=== PATIENT | female | born 1955 | race African-American/Black ===

== ENCOUNTER 2025-04-05 14:15 | Outpatient (AMB) | payer MEDICARE, SELFPAY ==
--- NOTE | 2025-04-05 14:22 | A.OFFPC_ITS ---
Vital Signs 04/05/25 14:27 04/05/25 14:35 Height 5 ft 8.9 in Weight 143 lb 6 oz BMI 21.2 BP 154/74 H 150/74 H Blood Pressure Location Rt brachial Rt brachial Position Sitting Sitting Respiration 14 Pulse 68 Pulse Source Pulse Oximeter Temp 98.6 F Temp Source Oral Pulse Oximetry (%) 96 Oxygen Delivery Method Room Air Intake Visit Reasons: New patient Accompanied by: Nephew or Niece Allergies No Known Allergies Allergy (Verified 04/05/25 14:24) Medication List - Last Reconciled 04/05/25 by Mari Grant PA-C amlodipine 5 mg PO DAILY lisinopril-hydrochlorothiazide 10-12.5 mg 1 tab PO DAILY Tobacco use date assessed: 04/05/25 Dental Screening Dental Screen Date: 04/05/25 Did you have a dental visit in the last 12 months?: No Did you have a dental problem in the last 6 months where you did not have access to dental care?: No Was dental information given to patient?: Patient has dentist (has appt tomorrow.) HPI New patient HPI Details Pt is a 69 y/o female who presents today to establish care. She has a hx of htn, ?chf. CV: Blood pressure today in the office is 150/74. She has been out of the lisinopril/hydrochlorothiazide 10/12.5 mg tablet. She still has been using the amlodipine 5 mg. No chest pain or shortness on breath. Does report that sometimes she has lower leg edema. Patient's nieces with her today and states that patient was undergoing workup for possible CHF in [place]. No records here today. Patient tells me that she feels great. Neuro: Niece reports some memory changes. It seems like her short term memory has been deficient. Patient tells me that she is not sure how accurate that is. No headaches. No history of strokes as she is aware of. No anxiety or depression. Overall she feels well. She did recently moved to the area from [place] in his adjusting. Mammo: overdue Colonoscopy: never had, would do cologuard Fam hx: father had CO at 56. [facility] Social History (Updated 04/05/25 @ 14:37 by Milly Montgomery CMA) Housing: House Alcohol intake: current Patient Tobacco Use Status: Never used Tobacco e-Cigarette/Vaping Use: Never Used Second Hand Smoke Exposure: No Use of substances other than those prescribed or required for medical reasons: No Cognitive needs: Yes Hearing needs: No Vision needs: Yes Questionnaire PHQ-9 Over the last 2 weeks, how often have you been bothered by any of the following problems? 1. Little interest or pleasure in doing things: several days 2. Feeling down, depressed, or hopeless: not at all 3. Trouble falling or staying asleep, or sleeping too much: more than half the days 4. Feeling tired or having little energy: not at all 5. Poor appetite or overeating: not at all 6. Feeling bad about yourself - or that you are a failure or have let yourself or your family down: not at all 7. Trouble concentrating on things, such as reading the newspaper or watching television: not at all 8. Moving or speaking so slowly that other people could have noticed. Or the opposite - being so fidgety or restless that you have been moving around a lot more than usual: several days 9. Thoughts that you would be better off or of hurting yourself in some way: not at all Total score: 4 Depression Screening Interpretation: Positive Depression Screening Done: Yes Source: Developed by Drs. Emeka Scales, Keily James, Adam Alvares and colleagues, with an educational brendan from [email or web address]. Thrive Questionnaire Date Thrive assessed: 04/05/25 I am a: Patient What is your living situation today?: I have a steady place to live Within the past 12 months, did the food you bought not last and you didn't have the money to get more?: Never true Within the past 12 months, did you worry whether your food would run out before you got money to buy more?: Never true Do you have trouble paying for medicines?: No Do you have trouble getting transportation to medical appointments?: No Do you have trouble paying your heating and electricity bill?: No Do you have trouble taking care of your child, family member or friend?: No Do you have trouble with day-to-day activities such as bathing, preparing meals, shopping, managing finances, etc.?: Yes Are you currently unemployed and looking for a job?: No Are you interested in more education?: No Please select the resources that you would like help with: None Currently or been in a relationship where the following occur: No concerns reported THRIVE Score: 0 AUDIT C Alcohol Use Questionnaire (AUDIT-C) 1. How often do you have a drink containing alcohol?: Never 2. How many drinks containing alcohol do you have on a typical day when you are drinking?: 1 or 2 3. How often do you have six or more drinks on one occasion?: Never Total Score: 0 SMITA-7 AMB Questionnaire SMITA-7 Date SMITA - 7 assessed: 04/05/25 Feeling nervous, anxious, or on edge: 0 = Not at all Not being able to stop or control worryin = Not at all Worrying too much about different things: 0 = Not at all Trouble relaxin = Not at all Being so restless that it is hard to sit still: 0 = Not at all Becoming easily annoyed or irritable: 0 = Not at all Feeling afraid as if something awful might happen: 0 = Not at all Total SMITA-7 score (0-4 normal; 5-9 mild; 10-14 moderate; 15-21 severe): 0 Source: Developed by Drs. Emeka Scales, Keily James, Adam Alvares and colleagues, with an educational brendan from [email or web address]. SMITA-7 Assessment Billing SMITA-7 Assessment Tool: SMITA-7 Assessment 97640 Physical exam (Primary Care) Vital Signs: Last Vital Signs Temp 98.6 F 04/05/25 14:27 Pulse 68 04/05/25 14:27 Resp 14 04/05/25 14:27 BP 150/74 H 04/05/25 14:35 Pulse Ox 96 04/05/25 14:27 Oxygen Delivery Method Room Air 04/05/25 14:27 BMI result Body Mass Index 21.2 Tobacco/Smoking Status: Tobacco use Status Tobacco use date assessed 04/05/25 04/05/25 14:31 Patient Tobacco Use Status Never used Tobacco 04/05/25 14:37 e-Cigarette/Vaping Use Never Used 04/05/25 14:37 PHQ-9: PHQ-9 Score PHQ-9: Total score 4 04/05/25 14:37 Depression Screening Interpretation: Positive Thrive Assessment: Date of Thrive Assessment Date Thrive assessed 04/05/25 04/05/25 14:31 Currently or been in a relationship where the following occur: No concerns reported Const Orientation/consciousness: patient oriented x3 HENMT Ears: hearing grossly normal bilaterally Neck Thyroid: Thyroid normal Lymphatic: no lymphadenopathy noted Resp Auscultation: clear to auscultation bilaterally Cardio Rate: regular rate Rhythm: regular rhythm Heart sounds: S1 normal heart sound present and S2 normal heart sound present GI Inspection: Yes normal to inspection Palpation (GI): Soft to palpation and Other GI palpation findings present (nontender, no cva tenderness) Auscultation: normoactive bowel sounds Rectal Exam - Female: deferred Skin General skin exam: no rashes or lesions noted Neuro General: patient oriented x3, gait normal and no focal motor deficits Office Procedures EKG Details: EKG today in the office is normal sinus rhythm at a rate of 71 beats per minute with nonspecific STT wave abnormalities. No prior study to compare. EKG int erpreted myself and Dr. Palm. [id number], Complete Coding Level of Care Code New Pt Level 4 (87180) Complex EM visit Add On G2211 Diagnoses Memory changes R41.3 HTN (hypertension) I10 Lower leg edema R60.0 CPT Codes EKG - CPT: 40044-[id number], Complete ([id number]) Additional Codes SMITA-7 Assessment Billing - SMITA-7 Assessment Tool: SMITA-7 Assessment 35777 ([id number]) Assessment & Plan Assessment & Plan (1) Memory changes: Code(s): R41.3 - Other amnesia Category: Medical Plan: Labs ordered today MRI as this is a relatively new exchange administrator the last year Urine ordered Referral to neurology (2) HTN (hypertension): Code(s): I10 - Essential (primary) hypertension Category: Medical Plan: Refilled medication today. Short term follow up to rechecked blood pressure (3) Lower leg edema: Code(s): R60.0 - Localized edema Category: Medical Plan: Labs ordered Echo ordered Plan Cologuard ordered Mammogram ordered Bone density ordered Orders: Orders Complete Blood Count Auto Diff Today I10 - Essential (primary) hypertension, R41.3 - Other amnesia, R60.0 - Localized edema TSH reflex Free T4 Today I10 - Essential (primary) hypertension, R41.3 - Other amnesia, R60.0 - Localized edema UA CC w/rflx Micro + Cult Today I10 - Essential (primary) hypertension, R30.0 - Dysuria, R41.3 - Other amnesia, R60.0 - Localized edema Lipid Panel Today I10 - Essential (primary) hypertension, R41.3 - Other amnesia, R60.0 - Localized edema Vitamin B12 and Folate Today I10 - Essential (primary) hypertension, R41.3 - Other amnesia, R60.0 - Localized edema CA echo transthoracic complete Today R60.0 - Localized edema, Z13.6 - Encounter for screening for cardiovascular disorders AMB EKG-In Office Today R60.0 - Localized edema, Z13.6 - Encounter for screening for cardiovascular disorders Syphilis Screen Today R41.3 - Other amnesia, Z20.2 - Contact with and (suspected) exposure to infections with a predominantly sexual mode of transmission XR DEXA axial skeleton Today Z78.0 - Asymptomatic menopausal state MM screening mammo BI Today Z12.31 - Encounter for screening mammogram for malignant neoplasm of breast MR head/brain wo con Today R41.3 - Other amnesia Comprehensive [place]. Panel Fast Today I10 - Essential (primary) hypertension, R41.3 - Other amnesia, R60.0 - Localized edema Microalbumin, Random (w Creat) Today I10 - Essential (primary) hypertension, R41.3 - Other amnesia, R60.0 - Localized edema Lyme IgG/IgM w/reflex to WB Today I10 - Essential (primary) hypertension, R41.3 - Other amnesia, R60.0 - Localized edema Referrals Neurology Referral R41.3 - Other amnesia Cologuard Test Z12.11 - Encounter for screening for malignant neoplasm of colon Medications: New amlodipine 5 mg PO DAILY 90 tabs 3RF lisinopril-hydrochlorothiazide 10-12.5 mg 1 tab PO DAILY 90 tabs 3RF
[2025-04-05 14:27] VITALS: BP 154/74; PULSE 68; RESP 14; TEMP 37; O2SAT 96; BMI 21.2
[2025-04-05 14:35] VITALS: BP 150/74
== END 2025-04-05 17:05 ==
LOC: HO.HMCFM 14:16
PROVIDERS: PCP Physician Assistant; Visit Provider Physician Assistant
DX: R41.3 Other amnesia (principal); I10 Essential (primary) hypertension; R60.0 Localized edema

== ENCOUNTER → 2025-04-05 14:15 | Outpatient (BNVA) | payer MEDICARE, SELFPAY | PROVIDERS: PCP Physician Assistant; Visit Provider Physician Assistant | DX: I10 Essential (primary) hypertension (principal); R41.3 Other amnesia; R60.0 Localized edema; Z79.899 Other long term (current) drug therapy | CPT/HCPCS: 93005; 96127; 99202 ==

== ENCOUNTER 2025-04-10 08:25 | Outpatient (REF) | payer MEDICARE, SELFPAY ==
[2025-04-10 08:41] LABS: MANUAL DIFF FLAG NO
[2025-04-10 08:52] LABS: Hematocrit 41.4 % (37.0-47.0); Hemoglobin 12.9 g/dl (12.0-16.0); Imm Gran Abs Auto 0.03 X10*3/uL (0.00-0.03); Imm Gran Pct Auto 0.4 % (0.0-0.4); Lymphocytes Absolute Auto 1.3 X10*3/uL (1.2-4.9); Mean Corpuscular HGB Conc 31.2 g/dl (31.0-35.0); Mean Corpuscular Hemoglobin 30.3 pg (27.0-33.0); Mean Corpuscular Volume 97.2 fL (80.0-98.0); NRBC Abs Auto 0.000 X10*3/uL (0.0-0.012); NRBC Pct Auto 0.0 /100WBC (0.0-0.2); Platelet Count 235 X10*3/uL (160-400); Red Blood Count 4.26 X10*6/uL (4.20-5.50); White Blood Count 6.8 X10*3/uL (4.8-10.8)
[2025-04-10 09:24] LABS: Appearance Urine Clear; Glucose Urine UA Negative (Negative); PH 7.0 (5.0-9.0); Specific Gravity - Urine 1.020 (1.005-1.025); UMIC TRIGGER UACC YES
[2025-04-10 09:27] LABS: Alanine Aminotransferase 104 U/L (0-31); Albumin Level 4.3 g/dL (3.5-5.0); Alkaline Phosphatase 52 U/L (39-117); Anion Gap 11 (12-20); Aspartate Amino Transferase 57 U/L (5-31); Blood Urea Nitrogen 15 mg/dL (9-16); Calcium 9.0 mg/dL (8.4-10.2); Carbon Dioxide 31 mmol/L (22-29); Chloride 106 mmol/L (96-108); Cholesterol 163 mg/dL (<200); Estimated Glomerular Filt Rate > 60; HDL Cholesterol 66 mg/dL (>40); Potassium 3.8 mmol/L (3.3-5.1); Sodium 144 mmol/L (135-145); Total Protein 7.1 g/dL (6.5-8.0); Triglycerides 71 mg/dL (<150)
[2025-04-10 09:41] LABS: UACC Culture Trigger YES
[2025-04-10 09:47] LABS: Syphilis Screen Nonreactive (Nonreactive)
[2025-04-10 10:02] LABS: Microalbum/Creatinine Ratio Ur 4.2 ug/mg cr (<30)
[2025-04-10 10:03] LABS: Folate 13.6 ng/mL (> or = 4.0); Vitamin B12 441 pg/mL (200-900)
[2025-04-11 05:24] LABS: Lyme Abs Screen <0.90 index
== END 2025-04-10 08:26 | disposition home or self-care (01) ==
LOC: HO.LAB 08:25
PROVIDERS: PCP Physician Assistant; Visit Provider Physician Assistant
DX: I10 Essential (primary) hypertension (principal); R41.3 Other amnesia; R60.0 Localized edema; Z20.2 Contact with and (suspected) exposure to infections with a predominantly sexual mode of transmission
CPT/HCPCS: 36415; 80053; 80061; 81001; 82043; 82570; 82607; 82746; 84443; 85025; 86617; 86618; 86780; 87086

== ENCOUNTER 2025-05-02 10:27 | Outpatient (AMB) | payer MEDICARE, SELFPAY ==
[2025-05-02 10:32] VITALS: BP 126/68; PULSE 76; RESP 14; TEMP 37.7; BMI 21.8
--- NOTE | 2025-05-02 10:32 | A.OFFPC_ITS ---
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 She has a hx of htn, ?chf. CV: Blood pressure today in the office is 126/68. She is compliant with lisinopril/hydrochlorothiazide 10/12.5 mg tablet and amlodipine 5 mg. -echo was ordered and pending Neuro: Niece reports some memory changes. It seems like her short term memory has been deficient. Patient tells me that she is not sure how accurate that is. No headaches. No history of strokes as she is aware of. No anxiety or depression. Overall she feels well. She did recently moved to the area from [place] and is still adjusting. -MRI is scheduled on 05/13 -she was referred to Dr. Ceron-has n ot heard GI: Labs did show elevated LFTs Mammo: overdue-scheduled Colonoscopy: never had, would do cologuard-this was ordered at last visit Fam hx: father had ND at 56. [facility] Social History (Updated 05/02/25 @ 10:45 by Milly Montgomery CMA) Housing: House Alcohol intake: current Patient Tobacco Use Status: Never used Tobacco e-Cigarette/Vaping Use: Never Used Second Hand Smoke Exposure: No Current occupational status: retired Cognitive needs: Yes Hearing needs: No Vision needs: Yes Questionnaire Thrive Questionnaire Date Thrive assessed: 04/05/25 I am a: Patient What is your living situation today?: I have a steady place to live Within the past 12 months, did the food you bought not last and you didn't have the money to get more?: Never true Within the past 12 months, did you worry whether your food would run out before you got money to buy more?: Never true Do you have trouble paying for medicines?: No Do you have trouble getting transportation to medical appointments?: No Do you have trouble paying your heating and electricity bill?: No Do you have trouble taking care of your child, family member or friend?: No Do you have trouble with day-to-day activities such as bathing, preparing meals, shopping, managing finances, etc.?: Yes Are you currently unemployed and looking for a job?: No Are you interested in more education?: No Please select the resources that you would like help with: None Currently or been in a relationship where the following occur: No concerns reported THRIVE Score: 0 AUDIT C Alcohol Use Questionnaire (AUDIT-C) 1. How often do you have a drink containing alcohol?: Never 3. How often do you have six or more drinks on one occasion?: Never Total Score: 0 SMITA-7 AMB Questionnaire SMITA-7 Date SMITA - 7 assessed: 04/05/25 Source: Developed by Drs. Emeka Scales, Keily James, Adam Alvares and colleagues, with an educational brendan from [employer]. Physical exam (Primary Care) Vital Signs: Last Vital Signs Temp 100 F 05/02/25 10:32 Pulse 76 05/02/25 10:32 Resp 14 05/02/25 10:32 BP 126/68 05/02/25 10:32 BMI result Body Mass Index 21.8 Tobacco/Smoking Status: Tobacco use Status Tobacco use date assessed 05/02/25 05/02/25 10:38 Patient Tobacco Use Status Never used Tobacco 05/02/25 10:45 e-Cigarette/Vaping Use Never Used 05/02/25 10:45 Thrive Assessment: Date of Thrive Assessment Date Thrive assessed 04/05/25 05/02/25 10:38 Currently or been in a relationship where the following occur: No concerns reported Const Orientation/consciousness: patient oriented x3 HENMT Ears: hearing grossly normal bilaterally Neck Thyroid: Thyroid normal Lymphatic: no lymphadenopathy noted Resp Auscultation: clear to auscultation bilaterally Cardio Rate: regular rate Rhythm: regular rhythm Heart sounds: S1 normal heart sound present and S2 normal heart sound present GI Inspection: Yes normal to inspection Palpation (GI): Soft to palpation and Other GI palpation findings present (nontender, no cva tenderness) Auscultation: normoactive bowel sounds Rectal Exam - Female: deferred Skin General skin exam: no rashes or lesions noted Neuro General: patient oriented x3, gait normal and no focal motor deficits Results Reviewed Results Reviewed: Laboratory Tests 04/10/25 04/10/25 08:34 08:39 WBC 6.8 RBC 4.26 Hgb 12.9 Hct 41.4 Plt Count 235 Sodium 144 Potassium 3.8 Chloride 106 Carbon Dioxide 31 H Anion Gap 11 L BUN 15 Creatinine 0.87 Estimated GFR > 60 AST 57 H ALT 104 H Triglycerides 71 Cholesterol 163 LDL Cholesterol, Calc 83 HDL Cholesterol 66 Vitamin B12 441 Folate 13.6 TSH 1.06 Microalb/Creat Ratio 4.2 T.pallidum Ab (EIA) Nonreactive Lyme Screen IgG & IgM <0.90 Coding Level of Care Code Est Pt Level 4 (94877) Complex EM visit Add On G2211 Diagnoses Memory changes R41.3 HTN (hypertension) I10 Elevated LFTs R79.89 Assessment & Plan Assessment & Plan (1) Memory changes: Code(s): R41.3 - Other amnesia Category: Medical Plan: Phone number provided to Neurology MRIs scheduled 05/13 (2) HTN (hypertension): Code(s): I10 - Essential (primary) hypertension Category: Medical Plan: Continue current regimen (3) Elevated LFTs: Code(s): R79.89 - Other specified abnormal findings of blood chemistry Category: Medical Plan: We will recheck labs today Ultrasound ordered and scheduled Orders: Orders Ferritin Today R79.89 - Other specified abnormal findings of blood chemistry Patient Instructions: [phone]?-neurology
== END 2025-05-02 11:21 | disposition home or self-care (01) ==
LOC: HO.HMCFM 10:27
PROVIDERS: PCP Physician Assistant; Visit Provider Physician Assistant
DX: R41.3 Other amnesia (principal); I10 Essential (primary) hypertension; R79.89 Other specified abnormal findings of blood chemistry

== ENCOUNTER 2025-05-02 10:27 | Outpatient (REF) | payer MEDICARE, SELFPAY ==
[2025-05-02 14:13] LABS: Appearance Urine Clear; Glucose Urine UA Negative (Negative); PH 6.0 (5.0-9.0); Specific Gravity - Urine 1.020 (1.005-1.025); UMIC TRIGGER UACC YES
[2025-05-02 15:53] LABS: Alanine Aminotransferase 54 U/L (0-31); Albumin Level 4.4 g/dL (3.5-5.0); Alkaline Phosphatase 54 U/L (39-117); Aspartate Amino Transferase 45 U/L (5-31); Ferritin 296 ng/mL (10-250); Gamma Glutamyl Transpeptidase 47 U/L (7-33); Total Protein 7.3 g/dL (6.5-8.0)
[2025-05-02 17:26] LABS: UACC Culture Trigger YES
[2025-05-03 09:20] LABS: HBsAGNum1 0.36 S/CO (0.00-0.99); Hepatitis B Surface Antigen Negative (Negative); ~HepC Num1 0.07 S/CO (0.00-0.79); ~Hepatitis C Antibody Nonreactive (Nonreactive)
== END 2025-05-02 10:28 | disposition home or self-care (01) ==
LOC: HO.WFDLDS 10:27
PROVIDERS: Visit Provider Physician Assistant
DX: R94.5 Abnormal results of liver function studies (principal); R41.3 Other amnesia; R79.89 Other specified abnormal findings of blood chemistry; R73.01 Impaired fasting glucose; I10 Essential (primary) hypertension; R60.0 Localized edema; R30.0 Dysuria; Z79.899 Other long term (current) drug therapy
CPT/HCPCS: 36415; 80076; 81001; 82728; 82977; 83036; 86803; 87086; 87340; 99212

== ENCOUNTER 2025-05-13 09:08 | Outpatient (REF) | payer MEDICARE, SELFPAY ==
--- NOTE | ~2025-05-13 | XR_ITS ---
CLINICAL HISTORY: Rule out foreign body (MRI). --- Additional Notes or Special Instructions: Patient is a poor historian, proxy (niece) assumed care over her in 2023. 2 view skull Comparison: None provided Findings: No acute fractures. Visualize paranasal sinuses and mastoids are clear. No radiopaque foreign body. IMPRESSION: 1. No acute findings or radiopaque foreign body. This document has been electronically signed by: Lacie Chacon DO on 05/13/2025 12:12:44
--- NOTE | ~2025-05-13 | XR_ITS ---
CLINICAL HISTORY: Rule out foreign body (MRI). --- Additional Notes or Special Instructions: Patient is a poor historian, proxy (niece) assumed care over her in 2023. 1 view chest x-ray Comparison: None provided Findings: No consolidation, pleural effusion or pneumothorax. Borderline heart size. No CHF. Probable mild tortuosity of the aorta. No acute fracture. IMPRESSION: 1. No acute cardiopulmonary process. 2. No radiopaque foreign body. This document has been electronically signed by: Lacie Chacon DO on 05/13/2025 12:20:20
--- NOTE | ~2025-05-13 | XR_ITS ---
CLINICAL HISTORY: Rule out foreign body (MRI) --- Additional Notes or Special Instructions: Patient is a poor historian, proxy (niece) assumed care over her in 2023. Radiograph of the abdomen 1 view Comparison: None provided Findings: Number of film(s): 1. No abnormal bowel dilatation. Qytujlhh-[id number]-hwdor amount of retained stool in the colon. No radiopaque foreign body. Multiple calcified uterine fibroids. No acute osseous abnormality. Minimal upper lumbar dextroscoliosis Impression: 1. No radiopaque foreign body. 2. Nonspecific and nonobstructive bowel gas pattern. This document has been electronically signed by: Lacie Chacon DO on 05/13/2025 12:15:28
== END 2025-05-13 09:09 | disposition home or self-care (01) ==
LOC: HO.MRI 09:08
PROVIDERS: PCP Physician Assistant; Visit Provider Physician Assistant
DX: R41.3 Other amnesia (principal)
CPT/HCPCS: 70250; 71045; 74018

== ENCOUNTER → 2025-05-13 09:26 | Outpatient (BNV) | payer MEDICARE, SELFPAY | PROVIDERS: PCP Physician Assistant; Visit Provider Radiology Diagnostic Radiology | DX: Z03.823 Encounter for observation for suspected inserted (injected) foreign body ruled out (principal) | CPT/HCPCS: 70250; 71045; 74018 ==

== ENCOUNTER 2025-06-03 08:32 | Outpatient (REF) | payer MEDICARE, SELFPAY ==
--- NOTE | ~2025-06-03 | MR_ITS ---
EXAMINATION: MR BRAIN WITHOUT IV CONTRAST HISTORY: R41.3 - Other amnesia TECHNIQUE: Sagittal T1, and axial T1, FLAIR, T2, gradient echo, and diffusion weighted MR images of the brain were obtained. COMPARISON: There are no prior studies available for comparison. FINDINGS: The pituitary is normal in size. The cerebellar tonsils are normally located. There is diffuse prominence of the ventricular system and cortical sulci, consistent with atrophy. Scattered periventricular and subcortical white matter hyperintensities are noted on the FLAIR and T2-weighted images which are nonspecific, but often seen in the setting of small vessel ischemic disease. The hippocampal formations are symmetric in size and demonstrate normal signal intensity. There is no mass effect or midline shift. No intra or extra-axial fluid collections are identified. There are no foci of restricted diffusion. Normal vascular flow voids are noted in the basilar and carotid arteries. The visualized paranasal sinuses are clear. There is fluid in the left mastoid air cells. MR/MR head/brain wo con IMPRESSION: 1. Mild cerebral atrophy and findings consistent with small vessel ischemic disease of the white matter as described. 2. Fluid in the left mastoid air cells. Electronically signed by: Emeka Valencia MD 06/04/2025 09:36 AM [facility]
== END 2025-06-03 08:33 | disposition home or self-care (01) ==
LOC: HO.MRI 08:32
PROVIDERS: PCP Physician Assistant; Visit Provider Physician Assistant
DX: R41.3 Other amnesia (principal)
CPT/HCPCS: 70551

== ENCOUNTER → 2025-06-03 08:37 | Outpatient (BNV) | payer MEDICARE, SELFPAY | PROVIDERS: PCP Physician Assistant; Visit Provider Radiology Diagnostic Radiology | DX: G31.9 Degenerative disease of nervous system, unspecified (principal) | CPT/HCPCS: 70551 ==